=== PATIENT | female | born 1985 | race Caucasian/White ===

== ENCOUNTER → 2017-03-12 | Outpatient (REF) | payer BC | LOC: M LAB REF 12:45 | PROVIDERS: ATTEND Family Medicine | DX: Z01.419 Encounter for gynecological examination (general) (routine) without abnormal findings (principal); Z11.51 Encounter for screening for human papillomavirus (HPV) ==

== ENCOUNTER → 2018-03-21 | Outpatient (REF) | payer BC | LOC: M LAB REF 16:52 | DX: Z30.432 Encounter for removal of intrauterine contraceptive device (principal) | CPT/HCPCS: 87186 ==

== ENCOUNTER → 2019-01-26 | Outpatient (CLI) | payer BC ==
[2019-01-26 18:17] LABS: BASO % 0.4 % (0.0-1.0); EOS # 0.1 10^3/uL (0.0-0.50); EOS % 0.6 % (0.0-3.0); HEMATOCRIT 34.4 % (36.0-47.0); HEMOGLOBIN 11.8 g/dl (12.0-15.5); LYMPH # 1.5 10^3/uL (1.5-4.5); LYMPH % 17.9 % (24.0-44.0); MEAN CORPUSCULAR HEMOGLOBIN 30.1 pg (27.0-33.0); MEAN CORPUSCULAR HGB CONC 34.3 g/dl (32.0-36.5); MEAN CORPUSCULAR VOLUME 87.8 fl (80.0-96.0); MONO # 0.5 10^3/uL (0.0-0.8); MONO % 5.7 % (0.0-5.0); NEUTROPHILS # 6.2 10^3/uL (1.8-7.7); PLATELET COUNT, AUTOMATED 299 10^3/uL (150-450); RED BLOOD COUNT 3.92 10^6/uL (4.00-5.40); WHITE BLOOD COUNT 8.3 10^3/uL (4.0-10.0)
[2019-01-26 20:29] LABS: GC DNA AMPLIFICATION NEGATIVE (NEGATIVE)
[2019-01-26 22:05] LABS: HIV 1&2 SCREEN CENTAUR NEGATIVE (NEGATIVE); RUBELLA IgG QUALITATIVE EQUIVOCAL (IMMUNE)
[2019-01-27 07:39] LABS: CHLAMYDIA DNA AMPLIFICATION NEGATIVE (NEGATIVE)
== END ==
LOC: M SMT 12:09
PROVIDERS: ATTEND Advanced Practice Midwife
DX: Z34.81 Encounter for supervision of other normal pregnancy, first trimester (principal); Z36.89 Encounter for other specified antenatal screening

== ENCOUNTER → 2019-03-25 | Outpatient (CLI) | payer BC ==
--- NOTE | 2019-03-26 03:56 | REP ---
Clinical: Anatomical evaluation. Comparison: None . Findings: Examination demonstrates a single live intrauterine in breech presentation. motion is identified by technologist. Placenta is noted posterior/right lateral and grade grade zero without evidence for placenta previa or abruption. Amniotic fluid volume is normal. Cervix measures 3.5 cm in length and appears closed. No evidence for nuchal cord. Gestational age by LMP 18 weeks 2 days with DENILSON 08/24/1988 . Gestational age by current measurements 18 weeks 6 days with DENILSON 08/20/2019 . FHR equals 153 beats per minute. BPD 4.3 cm 18 weeks 6 days HC 15.6 cm 18 weeks 4 day AC 14.5 cm 19 weeks 6 days FL 2.8 cm 18 weeks 4 days HL 2.8 cm 18 weeks 6 days HC/AC ratio 1.08 Estimated weight 277 grams ( 80th percentile). Anatomical assessment demonstrates normal structures including cranium, cavum, cerebellum/posterior fossa, facial features, lungs, four-chamber heart/ventricular outflow tracts, diaphragm, stomach, cord insertion/three-vessel cord, kidneys/bladder, and extremities. Small bilateral choroid plexus cysts noted. Impression: 1. Single live intrauterine in breech presentation demonstrating appropriate interval growth. 2. Small bilateral choroid plexus cysts may warrant reevaluation and follow-up. Electronically Signed by Tato Leong MD 03/26/2019 03:47 A
== END ==
LOC: M RAD 16:17
PROVIDERS: ATTEND Advanced Practice Midwife
DX: Z34.82 Encounter for supervision of other normal pregnancy, second trimester (principal); Z3A.18 18 weeks gestation of pregnancy

== ENCOUNTER → 2019-05-22 | Outpatient (CLI) | payer BC ==
[2019-05-22 14:14] LABS: BASO % 0.2 % (0.0-1.0); EOS % 0.4 % (0.0-3.0); HEMATOCRIT 33.9 % (36.0-47.0); HEMOGLOBIN 11.5 g/dl (12.0-15.5); LYMPH # 1.2 10^3/uL (1.5-4.5); LYMPH % 12.5 % (24.0-44.0); MEAN CORPUSCULAR HGB CONC 33.9 g/dl (32.0-36.5); MEAN CORPUSCULAR VOLUME 91.4 fl (80.0-96.0); MONO # 0.3 10^3/uL (0.0-0.8); MONO % 3.1 % (0.0-5.0); NEUTROPHILS # 7.9 10^3/uL (1.8-7.7); NEUTROPHILS % 82.8 % (36.0-66.0); PLATELET COUNT, AUTOMATED 242 10^3/uL (150-450); RED BLOOD COUNT 3.71 10^6/uL (4.00-5.40); WHITE BLOOD COUNT 9.6 10^3/uL (4.0-10.0)
== END ==
LOC: M LAB 12:15
PROVIDERS: ATTEND Family Medicine
DX: Z36.89 Encounter for other specified antenatal screening (principal); Z3A.00 Weeks of gestation of pregnancy not specified

== ENCOUNTER → 2019-06-12 | Outpatient (CLI) | payer OTHER | LOC: M LAB 06-11 07:04 | PROVIDERS: ATTEND Advanced Practice Midwife | DX: Z34.82 Encounter for supervision of other normal pregnancy, second trimester (principal) ==

== ENCOUNTER → 2019-07-31 | Outpatient (REF) | payer OTHER | LOC: M LAB REF 17:26 | PROVIDERS: ATTEND Specialist | DX: Z34.83 Encounter for supervision of other normal pregnancy, third trimester (principal) ==

== ENCOUNTER 2019-09-01 05:56 | Inpatient (IN) | payer OTHER ==
[~2019-09-01] VITALS: Ht 172.7 cm; Wt 77.1 kg
[2019-09-01] VITALS (52 sets, daily range): BP systolic 91–125; BP diastolic 52–78
[2019-09-01] MEDS ORDERED: COLA100C5 PO (06:43)
[2019-09-01] MEDS ORDERED: PRENTAB9 PO (06:43)
[2019-09-01] MEDS ORDERED: SLF 3 ML SYR IV PRN ×2 (07:00→23:30)
[2019-09-01 07:08] LABS: HEMATOCRIT 32.4 % (36.0-47.0); HEMOGLOBIN 11.1 g/dl (12.0-15.5); MEAN CORPUSCULAR HGB CONC 34.3 g/dl (32.0-36.5); MEAN CORPUSCULAR VOLUME 90.5 fl (80.0-96.0); PLATELET COUNT, AUTOMATED 179 10^3/uL (150-450); RED BLOOD COUNT 3.58 10^6/uL (4.00-5.40); WHITE BLOOD COUNT 9.4 10^3/uL (4.0-10.0)
[2019-09-01] MEDS ORDERED: PENICILLIN G POTASSIUM IV 5 MU in D5W MINI-BAG PLUS 100 ML IV STA (09:23)
[2019-09-01] MEDS ORDERED: LACTATED RINGER'S 1000 ML IV STA (09:23)
[2019-09-01] MEDS ORDERED: OXYTOCIN DRIP 30 UNITS in IV 1 EA IV SCH ×2 (09:45→23:07)
[2019-09-01] MEDS: LR 1,000 ML IV SCH ×3 (09:46→17:58)
[2019-09-01] MEDS ORDERED: SLF 3 ML SYR IV SCH (14:00)
[2019-09-01] MEDS: PENICILLIN G POTASSIUM IV 2.5 MU in IV 1 EA IV SCH ×3 (14:22→22:00)
[2019-09-01] MEDS ORDERED: FENTANYL 2MCG/ML ROPIVACAINE 0.2% IN 0.9% NACL 100ML IVBAG As Ordered ONE (17:41)
[2019-09-01] MEDS ORDERED: CALCIUM CARBONATE 500 MG CHEW U/D PO PRN (19:15)
[2019-09-01] MEDS ORDERED: ePHEDrine SULFATE 25 MG/5 ML(5MG/ML) SYRINGE As Ordered ONE (19:34)
[2019-09-01] MEDS ORDERED: ONDANSETRON 4MG/2ML VIAL (J2405) IV PRN ×2 (21:00→23:15)
[2019-09-01] MEDS ORDERED: FENTANYL/ROPIVACAINE/NACL BAG 100 ML EPIDURAL SCH (21:00)
[2019-09-01] MEDS ORDERED: diphenhydrAMINE INJ 50MG/ML VIAL (J1200) IV PRN (21:00)
[2019-09-01] MEDS ORDERED: REFRIGERATOR IV KEYS XX PRN (21:00)
[2019-09-01] MEDS ORDERED: EPIDURAL/PCA KEYS XX PRN (21:00)
[2019-09-01] MEDS ORDERED: ePHEDrine SULFATE 25 MG/5 ML(5MG/ML) SYRINGE IV PRN (21:00)
[2019-09-01] MEDS ORDERED: NALOXONE INJ 0.4 MG/1 ML VIAL (J2310) IV PRN (21:00)
[2019-09-01] MEDS ORDERED: EPIDURAL COMMENT XX SCH (21:00)
[2019-09-01] MEDS ORDERED: IBUPROFEN 600 MG TAB PO PRN (23:15)
[2019-09-01] MEDS ORDERED: RHOGAM 300 MCG (1500 IU) INJ (J2790) IM SCH (23:15)
[2019-09-01] MEDS ORDERED: IBUPROFEN 800 MG TAB PO PRN (23:15)
[2019-09-01] MEDS ORDERED: PROMETHAZINE 25 MG TAB PO PRN (23:15)
[2019-09-01] MEDS ORDERED: ACETAMINOPHEN 500 MG TAB PO PRN (23:15)
[2019-09-01] MEDS ORDERED: MEASLES,MUMPS,RUBELLA VACCINE INJ (MMR-II) (90707) SC SCH (23:15)
[2019-09-01] MEDS ORDERED: ACETAMINOPHEN TAB 650MG DOSE (2X325MG) PO PRN (23:15)
[2019-09-01] MEDS ORDERED: DOCUSATE SODIUM 100 MG CAP PO PRN (23:15)
[2019-09-01] MEDS ORDERED: DIBUCAINE 1% OINTMENT 30GM TOP PRN (23:15)
[2019-09-01 23:20] LABS: CORD GAS HCO3 V 21.9 MEQ/L; CORD GAS O2 SAT V 75.4 %; CORD GAS PCO2 V 42.9 mmHg; CORD GAS PH V 7.326 UNITS; CORD GAS PO2 V 36.9 mmHg; CORD GAS SBC V 20.6 MEQ/L; CORD GAS TCO2 V 23.2 MEQ/L
[2019-09-01 23:22] LABS: CORD GAS ABE A -8.1; CORD GAS HCO3 A 23.4 MEQ/L; CORD GAS O2 SAT A 49.4 %; CORD GAS PCO2 A 75.4 mmHg; CORD GAS PH A 7.109 UNITS; CORD GAS PO2 A 31.2 mmHg; CORD GAS TCO2 A 25.7 MEQ/L
[2019-09-02 00:35] VITALS: BP 121/72
[2019-09-02 06:00] VITALS: BP 105/65
[2019-09-02] MEDS ORDERED: SLF 3 ML SYR IV SCH (06:00)
[2019-09-02] MEDS: PRENATAL VITAMINS CHEWABLE TABLET PO SCH (08:30)
[2019-09-02 18:00] VITALS: BP 117/62
[2019-09-03 06:05] VITALS: BP 110/78
[2019-09-03] MEDS: PRENATAL VITAMINS CHEWABLE TABLET PO SCH (09:58)
== END 2019-09-03 10:00 | disposition home or self-care (01) | DRG 560 ==
LOC: M LDI 05:56 → M OBS 09-02 07:30
PROVIDERS: ADMIT Advanced Practice Midwife; ATTEND Advanced Practice Midwife
PROC: 10E0XZZ Delivery of Products of Conception, External Approach (ICD-10-PCS; principal; 2019-09-01)
PROC: 10907ZC Drainage of Amniotic Fluid, Therapeutic from Products of Conception, Via Natural or Artificial Opening (ICD-10-PCS; 2019-09-01)
PROC: 3E033VJ Introduction of Other Hormone into Peripheral Vein, Percutaneous Approach (ICD-10-PCS; 2019-09-01)
DX: O48.0 Post-term pregnancy (principal); Z3A.41 41 weeks gestation of pregnancy; Z37.0 Single live birth; O99.824 Streptococcus B carrier state complicating childbirth; O66.0 Obstructed labor due to shoulder dystocia; O69.81X0 Labor and delivery complicated by cord around neck, without compression, not applicable or unspecified; O43.123 Velamentous insertion of umbilical cord, third trimester; O43.193 Other malformation of placenta, third trimester

== ENCOUNTER → 2020-12-12 | Outpatient (CLI) | payer SELFPAY ==
[~2020-12-12] MED LIST: COLA100C5 PO; PRENTAB9 PO
== END ==
LOC: M LABSMTC 10:22
PROVIDERS: ATTEND Pediatrics
DX: Z20.822 Contact with and (suspected) exposure to COVID-19 (principal)

== ENCOUNTER → 2022-06-25 | Outpatient (CLI) | payer BC ==
[2022-06-25 11:09] LABS: BASO % 0.7 % (0.0-1.0); EOS # 0.1 10^3/uL (0.0-0.5); EOS % 1.3 % (0.0-3.0); HEMATOCRIT 40.1 % (36.0-47.0); HEMOGLOBIN 13.1 g/dl (12.0-15.5); LYMPH # 1.3 10^3/uL (1.5-5.0); LYMPH % 27.7 % (24.0-44.0); MEAN CORPUSCULAR HEMOGLOBIN 30.2 pg (27.0-33.0); MEAN CORPUSCULAR HGB CONC 32.7 g/dl (32.0-36.5); MEAN CORPUSCULAR VOLUME 92.4 fl (80.0-96.0); MONO # 0.4 10^3/uL (0.0-0.8); MONO % 7.6 % (2.0-8.0); NEUTROPHILS # 2.9 10^3/uL (1.5-8.5); NEUTROPHILS % 62.3 % (36.0-66.0); PLATELET COUNT, AUTOMATED 284 10^3/uL (150-450); RED BLOOD COUNT 4.34 10^6/uL (4.00-5.40); WHITE BLOOD COUNT 4.6 10^3/uL (4.0-10.0)
[2022-06-25 12:05] LABS: ALT/SGPT 17 U/L (12-78); BILIRUBIN,TOTAL 0.6 MG/DL (0.2-1.0); BLOOD UREA NITROGEN 8 MG/DL (7-18); CALCIUM LEVEL 9.2 MG/DL (8.5-10.1); CARBON DIOXIDE LEVEL 27 MEQ/L (21-32); CHLORIDE LEVEL 106 MEQ/L (98-107); GLOMERULAR FILTRATION RATE > 60.0 (>60); GLUCOSE, FASTING 70 MG/DL (70-100); POTASSIUM SERUM 4.2 MEQ/L (3.5-5.1); SODIUM LEVEL 136 MEQ/L (136-145); TOTAL PROTEIN 7.5 GM/DL (6.4-8.2)
== END ==
LOC: M PLALAB 08:47
PROVIDERS: ATTEND Family Medicine
DX: Z00.00 Encounter for general adult medical examination without abnormal findings (principal)

== ENCOUNTER → 2024-11-17 | Outpatient (CLI) | payer BC ==
[2024-11-17 16:06] LABS: BASO % 0.5 % (0.0-1.0); EOS % 0.5 % (0.0-3.0); HEMATOCRIT 37.8 % (36.0-47.0); HEMOGLOBIN 12.4 g/dl (12.0-15.5); LYMPH # 1.6 10^3/uL (1.5-5.0); LYMPH % 26.4 % (24.0-44.0); MEAN CORPUSCULAR HEMOGLOBIN 29.7 pg (27.0-33.0); MEAN CORPUSCULAR HGB CONC 32.8 g/dl (32.0-36.5); MEAN CORPUSCULAR VOLUME 90.4 fl (80.0-96.0); MONO # 0.5 10^3/uL (0.0-0.8); MONO % 7.8 % (2.0-8.0); NEUTROPHILS % 64.6 % (36.0-66.0); PLATELET COUNT, AUTOMATED 275 10^3/uL (150-450); RED BLOOD COUNT 4.18 10^6/uL (4.00-5.40); WHITE BLOOD COUNT 6.1 10^3/uL (4.0-10.0)
[2024-11-17 16:09] LABS: APPEARANCE, URINE CLEAR (CLEAR); BACTERIA, URINE AUTO 1+ (NEGATIVE); BILIRUBIN, URINE AUTO NEGATIVE (NEGATIVE); BLOOD, URINE BLOOD NEGATIVE (NEGATIVE); COLOR, URINE STRAW (YELLOW); GLUCOSE, URINE (UA) AUTO NEGATIVE (NEGATIVE); KETONE, URINE AUTO NEGATIVE (NEGATIVE); LEUKOCYTE ESTERASE, URINE AUTO NEGATIVE (NEGATIVE); NITRITE, URINE AUTO NEGATIVE (NEGATIVE); PROTEIN, URINE AUTO NEGATIVE (NEGATIVE); RBC, URINE AUTO 0 /HPF (0-3); SPECIFIC GRAVITY URINE AUTO 1.008 (1.002-1.035); SQUAMOUS EPITHELIAL CELL UR AU 1 /HPF (0-6); UROBILINOGEN, URINE AUTO 0.2 mg/dL (0.0-2.0); WBC, URINE AUTO 0 /HPF (0-3)
[2024-11-17 16:16] LABS: ALBUMIN 4.1 G/DL (3.2-5.2); ALKALINE PHOSPHATASE 48 U/L (35-104); ALT/SGPT 13 U/L (7.0-40); AST/SGOT 13 U/L (<34); BILIRUBIN,TOTAL 0.4 MG/DL (0.3-1.2); BLOOD UREA NITROGEN 10 MG/DL (9-23); CALCIUM LEVEL 9.4 MG/DL (8.5-10.1); CARBON DIOXIDE LEVEL 26 MMOL/L (20-31); CHLORIDE LEVEL 106 MMOL/L (98-107); CREATININE FOR GFR 0.56 MG/DL (0.55-1.30); GLOMERULAR FILTRATION RATE > 60.0 (>60); GLUCOSE, FASTING 91 MG/DL (60-100); POTASSIUM SERUM 4.8 MMOL/L (3.5-5.1); SODIUM LEVEL 139 MMOL/L (136-145); TOTAL PROTEIN 7.2 G/DL (5.7-8.2)
== END ==
LOC: M PLALAB 12:08
PROVIDERS: ATTEND Nurse Practitioner Family
DX: R10.30 Lower abdominal pain, unspecified (principal)

== ENCOUNTER → 2024-12-18 | Outpatient (CLI) | payer BC | LOC: M WHC 14:38 | PROVIDERS: ATTEND Nurse Practitioner Family | DX: N83.01 Follicular cyst of right ovary (principal); N83.02 Follicular cyst of left ovary ==

== ENCOUNTER → 2024-12-28 | Outpatient (CLI) | payer BC | LOC: M WUC 12:56 | PROVIDERS: ATTEND Nurse Practitioner Family | DX: R05.9 Cough, unspecified (principal) ==

== ENCOUNTER → 2024-12-29 | Outpatient (REF) | payer BC | LOC: M LAB REF 17:14 | PROVIDERS: ATTEND Family Medicine | DX: Z30.432 Encounter for removal of intrauterine contraceptive device (principal) ==